=== PATIENT | male | born 1985 | race Caucasian/White ===

== ENCOUNTER 2018-02-20 15:44 | Emergency (ER) | payer OTHER, SELFPAY ==
[2018-02-20 15:44] VITALS: BP 152/94; PULSE 97; RESP 16; TEMP 36.1; O2SAT 96; BMI 33.2
--- NOTE | 2018-02-20 16:11 | ED.RN ---
pt approached desk and states he called [facility] and was told they can stitch up his hand. Pt decided to leave ER and go to [facility].
== END 2018-02-20 16:10 | disposition left against medical advice (07) ==
LOC: ED 16:50
PROVIDERS: Emergency Provider Emergency Medicine
DX: R69 Illness, unspecified (principal)

== ENCOUNTER → 2019-09-12 17:09 | Outpatient (CLI) | payer OTHER, SELFPAY ==
--- NOTE | 2019-09-12 17:12 | MRI_ITS ---
STUDY: MRI LEFT KNEE REASON FOR EXAM: Male, 34 years old. Left ankle sprain. History of ACL repair. TECHNIQUE: Standardized fat and water weighted pulse sequences were obtained in all 3 orthogonal planes. COMPARISON: None. FINDINGS: Complex tear of the medial meniscus. Normal hyaline cartilage of the medial femorotibial compartment. Mild medial spurring. Normal medial collateral ligamentous complex (MCL). Normal distal semimembranosus, gracilis and semitendinosus tendons. Truncation of the free edge of the posterior horn of the lateral meniscus consistent with prior partial meniscectomy, less likely tear. Normal hyaline cartilage of the lateral femorotibial compartment. Mild lateral spurring. Normal proximal tibiofibular articulation. Normal lateral collateral (fibular) ligament. Normal popliteus tendon. Normal biceps femoris tendon. Status post ACL graft. The graft is torn. Normal posterior cruciate ligament (PCL). Marrow signal shows no fracture, bone contusion, or osteonecrosis. Normal congruent patellofemoral articulation. Normal hyaline cartilage of the patellofemoral compartment. Normal quadriceps tendon. Normal patellar tendon. Small joint effusion. MRI/Lower Ext Joint Only (Routine) IMPRESSION: 1. Torn ACL graft. 2. Complex medial meniscus tear. 3. Status post lateral partial meniscectomy, less likely tear. 4. Joint effusion. Electronically Signed: Lyly Yu MD at 19:41 EST Tel , Service support ,
== END ==
PROVIDERS: Referring Provider Specialist; Visit Provider Specialist
DX: S83.8X2A Sprain of other specified parts of left knee, initial encounter (principal)
CPT/HCPCS: 73721

== ENCOUNTER → 2021-07-31 11:51 | Outpatient (CLI) | payer OTHER, SELFPAY | PROVIDERS: Referring Provider Obstetrics & Gynecology; Visit Provider Obstetrics & Gynecology | DX: Z01.83 Encounter for blood typing (principal) | CPT/HCPCS: 36415; 86850; 86900; 86901 ==